=== PATIENT | female | born 1975 | race Hispanic/Latino ===

== ENCOUNTER 2018-08-21 22:16 | Emergency (ER) | payer SELFPAY ==
--- NOTE | 2018-08-21 22:46 | RAD ---
Exam: Chest one view HISTORY:Pain Comparison: None FINDINGS: Cardiac silhouette:Cardiomegaly. Pulmonary vessels: Normal Costophrenic angles: Clear LUNGS: interstitial opacities in the right lower lobe. Pneumothorax: None Osseous abnormalities: None IMPRESSION: 1. Cardiomegaly 2. Right lower lobe opacity which may be due to atelectasis, aspiration or pneumonia. Continued surve illance.
[2018-08-21 23:13] LABS: #Eosinphils 0.2 thou/uL (0.0-0.7); #Lymphocytes 2.8 thou/uL (1.20-3.40); #Monocytes 0.4 thou/uL (0.11-0.59); %Basophils 0.4 % (0.0-1.0); %Eosinophils 2.5 % (0.0-10.0); %Lymphocytes 37.6 % (21.0-51.0); %Monocytes 5.2 % (0.0-10.0); %Neutrophils 54.2 % (42.0-75.0); Hemoglobin 13.1 g/dL (12.0-16.0); Mean Corpuscular HGB CONC 35.3 g/dL (32.0-36.0); Mean Corpuscular Hemoglobin 32.6 pg (27.0-31.0); Mean Corpuscular Volume 92.5 fL (78.0-98.0); Mean Platelet Volume 7.3 fL (7.4-10.4); Platelet Count 296 thou/uL (130-400); RBC Distribution Width 11.9 % (11.5-14.5); Red Blood Cell (RBC) Count 4.02 mill/uL (4.20-5.40); White Blood Cell (WBC) Count 7.3 thou/uL (4.8-10.8)
[2018-08-21 23:35] LABS: ALT (SGPT) 19 U/L (8-55); AST (SGOT) 16 U/L (5-34); Albumin 4.1 g/dL (3.5-5.0); Alkaline Phosphatase 89 U/L (40-150); Anion Gap 12 mmol/L (10-20); BUN (Urea Nitrogen) 12 mg/dL (7.0-18.7); Bilirubin, Total 0.3 mg/dL (0.2-1.2); Calc. Creatinine Clearance 0 mL/min (70-130); Carbon Dioxide 20 mmol/L (22-29); Chloride 106 mmol/L (98-107); Estimated GFR-MDRD Greater than 90; Globulin 2.9 g/dL (2.4-3.5); Glucose 146 mg/dL (70-105); Lipase 56 U/L (8-78); Potassium 3.1 mmol/L (3.5-5.1); Sodium 135 mmol/L (136-145)
[2018-08-21] MEDS ORDERED: Aspirin Chewable 81 MG TAB ONE (23:52)
[2018-08-22] MEDS ORDERED: Acetaminophen 325 MG TAB ONE (01:06)
[2018-08-22] MEDS ORDERED: Nitroglycerin 0.4 MG TAB 1 EACH ONE (01:06)
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
== END 2018-08-22 02:50 | disposition home or self-care (01) ==
LOC: ERS 22:16
DX: R07.89 Other chest pain (principal)
CPT/HCPCS: 36415; 71045; 71275; 80053; 83690; 84484; 85025; 85379; 93005